=== PATIENT | female | born 1985 | race Caucasian/White ===

== ENCOUNTER 2016-12-18 11:55 | Emergency (ER) | payer BC ==
[2016-07-29 08:29] VITALS: BMI 44.0
[~2016-12-18 11:55] MED LIST: BUPROPION HCL100 M1 PO; HYDROCODON-ACE1 EAC7 PO; INDERAL10 MG PO; LEVAQUIN500 MG PO; ROBAXIN500 MG PO; ULTRAM50 MG PO; ZOLOFT100 MG PO
[2016-12-18 12:31] LABS: APPEARANCE CLEAR (CLEAR); BILIRUBIN NEGATIVE (NEGATIVE); COLOR YELLOW (YELLOW); GLUCOSE NEGATIVE (NEGATIVE); KETONE NEGATIVE (NEGATIVE); LEUKOCYTE ESTERASE NEGATIVE (NEGATIVE); NITRITE NEGATIVE (NEGATIVE); PROTEIN NEGATIVE (NEGATIVE); UROBILINOGEN NORMAL (NORMAL)
[2016-12-18 12:53] LABS: BASOPHILS 0.2 % (0.0-2.0); EOSINOPHILS 0.4 % (0-7); HEMOGLOBIN 11.8 g/dL (12-16); IMMATURE GRANULOCYTES 0.2 % (0-5); LYMPHOCYTES 25.9 % (15-50); MCH 27.9 pg (26.0-34.0); MCHC 32.8 g/dL (31.0-37.0); MCV 85.1 fL (80.0-100.0); MEAN PLATELET VOLUME 9.3 fL (7.4-10.4); MONOCYTES 7.7 % (2-11); NEUTROPHILS 65.6 % (40-80); PLATELET COUNT 293 10x3/uL (130-400); RBC 4.23 10x6/uL (4.00-5.40); RDW 14.5 % (11.5-14.5); WBC 12.8 10x3/uL (4.8-10.8)
== END 2016-12-18 16:13 | disposition home or self-care (01) ==
LOC: D.ER 11:55
PROVIDERS: Emergency Medicine
DX: O26.891 Other specified pregnancy related conditions, first trimester (principal); Z3A.01 Less than 8 weeks gestation of pregnancy; R10.9 Unspecified abdominal pain

== ENCOUNTER 2016-12-24 09:12 | Emergency (ER) | payer BC ==
[2016-07-29 08:29] VITALS: BMI 44.0
[2016-12-24 09:49] LABS: BASOPHILS 0.2 % (0.0-2.0); EOSINOPHILS 0.8 % (0-7); HEMATOCRIT 36.2 % (36.0-48.0); HEMOGLOBIN 11.9 g/dL (12-16); IMMATURE GRANULOCYTES 0.4 % (0-5); LYMPHOCYTES 29.8 % (15-50); MCH 28.2 pg (26.0-34.0); MCHC 32.9 g/dL (31.0-37.0); MCV 85.8 fL (80.0-100.0); MEAN PLATELET VOLUME 8.9 fL (7.4-10.4); MONOCYTES 7.6 % (2-11); NEUTROPHILS 61.2 % (40-80); PLATELET COUNT 270 10x3/uL (130-400); RBC 4.22 10x6/uL (4.00-5.40); RDW 14.2 % (11.5-14.5); WBC 12.2 10x3/uL (4.8-10.8)
[2016-12-24 09:58] LABS: HCG SERUM POSITIVE (NEGATIVE)
== END 2016-12-24 13:44 | disposition home or self-care (01) ==
LOC: D.ER 09:12
PROVIDERS: Family Medicine
DX: O20.0 Threatened abortion (principal); Z3A.01 Less than 8 weeks gestation of pregnancy

== ENCOUNTER 2016-12-25 02:04 | Emergency (ER) | payer BC ==
[2016-07-29 08:29] VITALS: BMI 44.0
[2016-12-25 02:25] LABS: BASOPHILS 0.2 % (0.0-2.0); EOSINOPHILS 0.6 % (0-7); HEMATOCRIT 35.2 % (36.0-48.0); HEMOGLOBIN 11.7 g/dL (12-16); IMMATURE GRANULOCYTES 0.4 % (0-5); LYMPHOCYTES 25.2 % (15-50); MCHC 33.2 g/dL (31.0-37.0); MCV 84.2 fL (80.0-100.0); MONOCYTES 5.8 % (2-11); NEUTROPHILS 67.8 % (40-80); PLATELET COUNT 289 10x3/uL (130-400); RBC 4.18 10x6/uL (4.00-5.40); WBC 16.2 10x3/uL (4.8-10.8)
[2016-12-25 02:34] LABS: HCG SERUM POSITIVE (NEGATIVE)
[2016-12-25 02:39] LABS: ALBUMIN 3.3 g/dL (3.4-5.0); ALKALINE PHOSPHATASE 86 U/L (46-116); ALT (SGPT) 18 U/L (10-68); BILIRUBIN - TOTAL 0.12 mg/dL (0.2-1.3); CALC OSMOLALITY 275 mosm/kg (275-300); CALCIUM 8.5 mg/dL (8.5-10.1); CARBON DIOXIDE 20.5 mmol/L (21.0-32.0); CHLORIDE - SERUM 105 mmol/L (98-107); CREATININE - SERUM 0.9 mg/dL (0.6-1.3); GLUCOSE 110 mg/dL (74-106); POTASSIUM - SERUM 3.3 mmol/L (3.5-5.1); PROTEIN - SERUM 7.3 g/dL (6.4-8.2); SODIUM 137 mmol/L (136-145); UREA NITROGEN 15 mg/dL (7-18); eGFR NON AFRICAN AMERICAN 77 mL/min (90-120)
[2016-12-25 02:46] LABS: HCG - QUANTITATIVE (MATERNAL) 831 mIU/mL
== END 2016-12-25 03:59 | disposition home or self-care (01) ==
LOC: D.ER 02:04
PROVIDERS: Emergency Medicine
DX: O03.9 Complete or unspecified spontaneous abortion without complication (principal)

== ENCOUNTER → 2017-01-19 11:10 | Outpatient (CLI) | payer BC ==
[2016-07-29 08:29] VITALS: BMI 44.0
[2017-01-19 11:37] LABS: BASOPHILS 0.2 % (0-2); EOSINOPHILS 0.8 % (0-7); HEMATOCRIT 34.2 % (36.0-48.0); HEMOGLOBIN 11.1 g/dL (12-16); IMMATURE GRANULOCYTES 0.2 % (0-5); LYMPHOCYTES 24.7 % (15-50); MCH 28.1 pg (26.0-34.0); MCHC 32.5 g/dL (31.0-37.0); MCV 86.6 fL (80.0-100.0); NEUTROPHILS 67.1 % (40-80); PLATELET COUNT 229 10x3/uL (130-400); RBC 3.95 10x6/uL (4.00-5.40)
[2017-01-19 11:45] LABS: INR 1.11 (0.85-1.17); PROTIME 14.2 SECONDS (11.6-15.0)
[2017-01-19 11:46] LABS: APTT 26.3 SECONDS (22.8-39.4)
[2017-01-19 11:55] LABS: HELICOBACTER PYLORI IGG NEGATIVE (NEGATIVE)
[2017-01-19 12:20] LABS: ALKALINE PHOSPHATASE 77 U/L (46-116); ALT (SGPT) 29 U/L (10-68); BILIRUBIN - INDIRECT 0.14 mg/dL (0.00-1.00); BILIRUBIN - TOTAL 0.17 mg/dL (0.2-1.3); CALC OSMOLALITY 278 mosm/kg (275-300); CALCIUM 8.5 mg/dL (8.5-10.1); CARBON DIOXIDE 25.8 mmol/L (21.0-32.0); CHLORIDE - SERUM 107 mmol/L (98-107); CHOL - HDL RATIO 4.6 ratio (2.3-4.1); CHOLESTEROL, TOTAL 176 mg/dL (0-200); CREATININE - SERUM 0.8 mg/dL (0.6-1.3); GLUCOSE 111 mg/dL (74-106); HDL CHOLESTEROL 38 mg/dL (32-96); LDL CHOLESTEROL 92 mg/dL (0-100); LDL-HDL RATIO 2.4 ratio (1.5-3.5); POTASSIUM - SERUM 4.2 mmol/L (3.5-5.1); PROTEIN - SERUM 6.9 g/dL (6.4-8.2); SODIUM 140 mmol/L (136-145); THYROID STIMULATING HORMONE 1.95 uIU/mL (0.36-3.74); TRIGLYCERIDE 232 mg/dL (30-200); UREA NITROGEN 9 mg/dL (7-18); eGFR NON AFRICAN AMERICAN 89 mL/min (90-120)
[2017-01-19 12:21] LABS: BILIRUBIN - DIRECT 0.03 mg/dL (0.00-0.30)
[2017-01-20 09:17] LABS: FOLATE (FOLIC ACID) - SERUM 15.8 ng/mL (>3.0)
[2017-01-20 10:18] LABS: HELICOBACTER PYLORI IGM AB 5.9 units (0.0-8.9)
[2017-01-20 11:19] LABS: VITAMIN D 25 HYDROXY 16.9 ng/mL (30.0-100.0)
== END | disposition home or self-care (01) ==
LOC: D.LAB 11:10
PROVIDERS: Surgery
DX: Z00.00 Encounter for general adult medical examination without abnormal findings (principal)

== ENCOUNTER → 2017-01-28 09:59 | Outpatient (CLI) | payer BC ==
[2016-07-29 08:29] VITALS: BMI 44.0
== END | disposition home or self-care (01) ==
LOC: D.RAD 09:59
DX: K21.9 Gastro-esophageal reflux disease without esophagitis (principal); Z68.41 Body mass index [BMI] 40.0-44.9, adult; E66.01 Morbid (severe) obesity due to excess calories

== ENCOUNTER → 2017-02-15 05:16 | Day surgery (SDC) | payer BC ==
[~2017-02-15] VITALS: Ht 162.6 cm; Wt 115.5 kg
[2017-02-15 05:55] VITALS: BP 109/63; Ht 162.6 cm; Wt 115.5 kg
[2017-02-15 06:01] LABS: HCG URINE NEGATIVE (NEGATIVE)
[2017-02-15 06:29] LABS: HEMATOCRIT 37.1 % (36.0-48.0); MCH 28.3 pg (26.0-34.0); MCHC 32.3 g/dL (31.0-37.0); MCV 87.5 fL (80.0-100.0); MEAN PLATELET VOLUME 9.7 fL (7.4-10.4); RBC 4.24 10x6/uL (4.00-5.40); RDW 13.5 % (11.5-14.5); WBC 9.5 10x3/uL (4.8-10.8)
--- NOTE | 2017-02-15 09:40 | NUR ---
0830-RECD TO ROOM FROM GI LAB. DR BOWLES IN TO TALK TO PATIENT/SPOUSE. 0900-FULL LIQUIDS SERVED.
--- NOTE | 2017-02-15 10:38 | NUR ---
0930-IV D/C, DISCHARGE INSTRUCTIONS REVIEWED. 1000-D/C VIA WHEELCHAIR.
--- NOTE | 2017-02-15 22:59 | OP ---
PATIENT NAME: FABIAN SILVA MEDICAL RECORD: [id number] :[birth year] LOCATION:D.OPS ADMISSION DATE: SURGEON: HANNY BOWLES MD DATE OF OPERATION: 02/15/2017 SURGEON: Hanny Bowles M.D. PREOPERATIVE DIAGNOSES: 1. Gastroesophageal reflux disease. 2. Morbid obesity. 3. Body mass index 40-45. POSTOPERATIVE DIAGNOSES: 1. Gastroesophageal reflux disease. 2. Morbid obesity. 3. Body mass index 40-45. PROCEDURES PERFORMED: Esophagogastroduodenoscopy with biopsy. ANESTHESIA: Total intravenous anesthesia. SPECIMENS: 1. Duodenal biopsy. 2. Antrum. 3. Gastric 4. GE junction. Case is contaminated. OPERATIVE COURSE: After consent was obtained, the patient was taken to the endoscopy suite. A timeout was taken to confirm the correct patient and procedure. A bite block was placed. Hurricaine [place] was administered. Total intravenous anesthesia was given. The patient was placed in left lateral decubitus position. The endoscope was passed through the biteblock under direct endoscopic vision and it was passed posterior of the epiglottis. It was passed through the esophagus under endoscopic vision. It was advanced into the stomach. The stomach was insufflated. The scope was then passed into the stomach. The pylorus was intubated. The duodenum was evaluated. There was no duodenitis noted. Multiple duodenal biopsies were taken. The scope was withdrawn to the pylorus. Antral biopsies were taken. There was some mild gastritis noted on the stomach on exam. Multiple gastric biopsies were taken. The scope was retroflexed. There was no hiatal hernia noted. The scope was then withdrawn through the GE junction. There was some mild reflux, linear ulcerations, and mild grade I esophagitis. There was no hiatal hernia noted. Multiple GE junction biopsies were taken. The scope was then reinserted into the stomach. The stomach was desufflated. The esophagus was examined upon withdrawal the scope. There were no esophageal abnormalities identified. The scope was withdrawn. At the end of the case, all needle and instrument counts were correct. No complications occurred. The patient tolerated the procedure well. At the end of the case, she was transferred to recovery room in satisfactory condition. TRANSINT:[id number] Voice Confirmation ID: [id number] DOCUMENT ID: [id number] OPERATIVE REPORT [id number] FABIAN SILVA HANNY BOWLES MD at 2259 CC: [id number] DICTATION DATE: 02/15/17 08 HONING MACHINE OPERATOR: 02/15/17 1127 [address] [place] [id number] [place] [id number]
== END | disposition home or self-care (01) ==
LOC: D.OPS 05:16
PROVIDERS: Anesthesiology; Surgery
DX: K29.50 Unspecified chronic gastritis without bleeding (principal); K21.0 Gastro-esophageal reflux disease with esophagitis; E66.01 Morbid (severe) obesity due to excess calories; Z68.41 Body mass index [BMI] 40.0-44.9, adult

== ENCOUNTER 2017-03-24 05:18 | Inpatient (IN) | payer BC ==
[2017-03-23 15:54] LABS: HEMATOCRIT 34.3 % (36.0-48.0); HEMOGLOBIN 11.3 g/dL (12-16); MCH 28.1 pg (26.0-34.0); MCHC 32.9 g/dL (31.0-37.0); MCV 85.3 fL (80.0-100.0); MEAN PLATELET VOLUME 9.5 fL (7.4-10.4); RBC 4.02 10x6/uL (4.00-5.40); RDW 13.3 % (11.5-14.5)
[~2017-03-24] VITALS: Ht 162.6 cm; Wt 113.6 kg
[2017-03-24] VITALS (9 sets, daily range): BP systolic 98–156; BP diastolic 49–92; Ht 162.6 cm; Wt 113.6 kg
[2017-03-24 07:21] LABS: HCG URINE NEGATIVE (NEGATIVE)
--- NOTE | 2017-03-24 10:43 | NUR ---
PATIENT RATES PAIN AT 6 UPON DC FROM PACU. 2 MG DILAUDID GIVEN.
--- NOTE | 2017-03-24 10:55 | NUR ---
RECIEVED PT FROM SURGERY AT THIS TIME. REPORT GIVEN BY ESCOBAR PRADO RN. PT ORIENTED TO ROOM. BED IN LOW POSITION AND CALL LIGHT WITHIN REACH. POST-OP STABILITY VITALS STARTED.
--- NOTE | 2017-03-24 15:08 | NUR ---
Patient Name: FABIAN SILVA Admission Status: Elective Accout number: [id number] Admission Date: 03-24-2017 : 1985 Admission Diagnosis: Attending: MAIK Current LOS: 1 Anticipated DC Date: 03-26-2017 Planned Disposition: Home Primary Insurance: [employer] OUT OF STATE Discharge Planning Comments: CM MET WITH PATIENT REGARDING D/C NEEDS AND PLANS. PATIENT STATED SHE LIVES WITH HER SPOUSE MEGHNA AND HE WILL DRIVE HER HOME AT DISCHARGE. PATIENT STATED SHE HAS ABOUT 5 STEPS TO ENTER HOME AND NO STEPS INSIDE. PATIENT STATED SHE IS INDEPENDENT WITH HER CARE AND HAS NO DME AT HOME. PATIENTS PCP IS DR. NO AND PHARMACY IS [facility] [address]. PATIENT DENIES NEEDS FOR HOME HEALTH AT THIS TIME. CM WILL CONTINUE TO FOLLOW PATIENT WITH D/C NEEDS AND PLANS. PCP DR[facility] [address]- [phone] CAREN (SPOUSE) [phone] [employer]: [facility] How many steps to enter\exit or inside your home? 5 W/RAILS 0 * PCP DR. NO 0 * [facility]acy [facility] [address] 0 * Preadmission Environment Home with Family 0 * ADLs Independent 0 * Equipment None 0 * List name and contact numbers for known caregivers / representatives who currently or will assist patient after discharge: CAREN [phone] * Community resources currently utilized None 0 * Additional services required to return to the preadmission environment? Yes 0 * Can the patient safely return to the preadmission environment? Yes 0 * Has this patient been hospitalized within the prior 30 days at any hospital? No 0 Grand Total: 0
--- NOTE | 2017-03-24 16:20 | NUR ---
AMBULATED WITH PT AROUND NURSING UNIT X1, PT TOLERATED WELL.
[2017-03-25] VITALS: BP 125/72
[2017-03-25 04:00] VITALS: BP 135/63
[2017-03-25 05:47] LABS: BASOPHILS 0.1 % (0-2); EOSINOPHILS 0.1 % (0-7); HEMATOCRIT 31.9 % (36.0-48.0); HEMOGLOBIN 10.5 g/dL (12-16); IMMATURE GRANULOCYTES 0.4 % (0-5); LYMPHOCYTES 15.3 % (15-50); MCH 27.9 pg (26.0-34.0); MCHC 32.9 g/dL (31.0-37.0); MCV 84.6 fL (80.0-100.0); MONOCYTES 6.7 % (2-11); NEUTROPHILS 77.4 % (40-80); PLATELET COUNT 296 10x3/uL (130-400); RBC 3.77 10x6/uL (4.00-5.40); RDW 13.3 % (11.5-14.5)
[2017-03-25 05:58] LABS: WBC 15.3 10x3/uL (4.8-10.8)
[2017-03-25 06:01] LABS: CALC OSMOLALITY 276 mosm/kg (275-300); CALCIUM 8.5 mg/dL (8.5-10.1); CARBON DIOXIDE 24.2 mmol/L (21.0-32.0); CHLORIDE - SERUM 103 mmol/L (98-107); CREATININE - SERUM 0.6 mg/dL (0.6-1.3); GLUCOSE 105 mg/dL (74-106); MAGNESIUM - SERUM 1.5 mg/dL (1.8-2.4); POTASSIUM - SERUM 3.9 mmol/L (3.5-5.1); SODIUM 139 mmol/L (136-145); UREA NITROGEN 9 mg/dL (7-18); eGFR NON AFRICAN AMERICAN > 90 mL/min (90-120)
--- NOTE | 2017-03-25 07:15 | NUR ---
PATIENT RECEIVED IN LOW GILES POSITION RESTING WITH EYES CLOSED. RESPIRATIONS EVEN AND UNLABORED. FAMILY AT BEDSIDE. SIDE RAILS UP X2. BED IN LOW POSITION. CALL LIGHT IN REACH.
[2017-03-25 08:15] VITALS: BP 121/65
--- NOTE | 2017-03-25 08:54 | NUR ---
PATIENT ALERT IN BED. C/O NAUSEA AND PAIN 05/06. ZOFRAN AND DEMEROL PER PRN ORDER. TALKED WITH PATIENT ABOUT WALKING IN THE HALLWAY ONCE NAUSEA UNDER CONTROL. STATES UNDERSTANDING. DENIES NEEDS. SIDE RAILS UP X2. BED IN LOW POSITION. CALL LIGHT IN REACH.
--- NOTE | 2017-03-25 11:50 | NUR ---
PATIENT UP SHOWERING WITH ASSIST FROM FAMILY. STATES NAUSEA IS A LITTLE BETTER THAN THIS MORNING. DENIES NEEDS.
[2017-03-25 12:31] VITALS: BP 123/69
--- NOTE | 2017-03-25 13:20 | NUR ---
PATIENT AMBULATED 250 FT AROUND NURSES UNIT WITHOUT ASSIST. WELL TOLERATED. SITTING UP IN CHAIR PRESENTLY. CALL LIGHT IN REACH.
--- NOTE | 2017-03-25 13:55 | NUR ---
NUTRITION MONITORING & EVAL CAHRT REVIEWED. SPOKE WITH PT BRIEFLY ABOUT DIET GUIDELINES, RESTRICTIONS. PT STATES SHE HAS ALL OUTPT MATERIAL AND POSES NO QUESTIONS. UP IN CHAIR BUT VERY DROWSY. RD FOLLOWING
[2017-03-25 16:36] VITALS: BP 132/80
--- NOTE | 2017-03-25 18:00 | NUR ---
ALERT IN BED RESTING QUIETLY. RESPIRATIONS EVEN AND UNLABORED. SCHEDULED MEDICATION ADMINISTERED WELL PRN TORADOL. DENIES NEEDS. BED IN LOW POSITION. CALL LIGHT IN REACH.
--- NOTE | 2017-03-25 19:29 | NUR ---
ASSESSMENT COMPLETED, NO ACUTE DISTRESS NOTED, IV INFUSING TO R FOREARM, FAMILY IN ROOM, SR'S UP X2, CL IN REACH, WILL MONITOR
--- NOTE | 2017-03-25 19:32 | NUR ---
INSTRUCTED PT TO AMBULATE, PT AGREED, AMBULATING IN [place] WITH FAMILY, NO DISTRESS NOTED
[2017-03-25 20:00] VITALS: BP 122/57
--- NOTE | 2017-03-25 20:48 | NUR ---
PRN DEMEROL GIVEN PER REQUEST FOR C/O PAIN 04/05, BETTY WELL, DENIES FURTHER NEEDS, CL IN REACH, FAMILY IN ROOM
--- NOTE | 2017-03-25 23:10 | NUR ---
RESTING WITH EYES CLOSED, RESP WITH EASE, NO DISTRESS NOTED, FALL PRECAUTIONS IN PLACE, CL IN REACH
[2017-03-26] VITALS: BP 107/63
[2017-03-26 04:00] VITALS: BP 107/68
[2017-03-26 05:13] LABS: BASOPHILS 0.1 % (0-2); EOSINOPHILS 0.3 % (0-7); HEMATOCRIT 28.7 % (36.0-48.0); HEMOGLOBIN 9.4 g/dL (12-16); IMMATURE GRANULOCYTES 0.2 % (0-5); LYMPHOCYTES 26.4 % (15-50); MCH 28.1 pg (26.0-34.0); MCHC 32.8 g/dL (31.0-37.0); MCV 85.7 fL (80.0-100.0); MEAN PLATELET VOLUME 9.4 fL (7.4-10.4); MONOCYTES 9.4 % (2-11); NEUTROPHILS 63.6 % (40-80); RBC 3.35 10x6/uL (4.00-5.40); RDW 13.7 % (11.5-14.5)
[2017-03-26 05:25] LABS: PLATELET COUNT 235 10x3/uL (130-400); WBC 9.1 10x3/uL (4.8-10.8)
[2017-03-26 05:26] LABS: CALC OSMOLALITY 278 mosm/kg (275-300); CALCIUM 8.3 mg/dL (8.5-10.1); CARBON DIOXIDE 27.9 mmol/L (21.0-32.0); CHLORIDE - SERUM 108 mmol/L (98-107); CREATININE - SERUM 0.8 mg/dL (0.6-1.3); GLUCOSE 93 mg/dL (74-106); MAGNESIUM - SERUM 1.8 mg/dL (1.8-2.4); POTASSIUM - SERUM 3.8 mmol/L (3.5-5.1); SODIUM 141 mmol/L (136-145); UREA NITROGEN 8 mg/dL (7-18); eGFR NON AFRICAN AMERICAN 89 mL/min (90-120)
--- NOTE | 2017-03-26 07:00 | NUR ---
PT REC'D FROM [facility]. UP AMBULATING THROUGH HALLS WITHOUT ANY ASSISTANCE. AAOX4. NO COMPLAINTS OF PAIN. APPLE JUICE PROVIDED. BED LOW, CALL LIGHT IN REACH, DENIES NEEDS. CPOC.
--- NOTE | 2017-03-26 07:15 | NUR ---
PATIENT IS SITTING UP IN THE CHAIR, NO SIGNS OF DISTRESS NOTED. PATIENT IS RECIEVING A UPDRAFT AT THIS TIME. PATIENT DENIES NEEDS. CALL LIGHT IN REACH.
--- NOTE | 2017-03-26 08:05 | NUR ---
MORNING MEDS PASSED AT THIS TIME. PRN TYLENOL ADMINISTERED PER PT COMPLAINTS OF HOU. STATED SHE DID NOT WANT ANYTHING "HEAVY." I STATED SHE HAD TYLENOL ORDERED AND SHE SAID THAT WOULD BE FINE. DRESSINGS TO ABD CDI. WILL REASSESS PAIN. BED LOW, CALL LIGHT IN REACH, DENIES NEEDS. CPOC.
[2017-03-26 08:42] VITALS: BP 124/71
--- NOTE | 2017-03-26 10:47 | NUR ---
PRN DEMEROL ADMINISTERED PER PT COMPLAINTS OF 7/10 ABD PAIN. WILL REASSESS. ONE TIME DOSE OF DIFLUCAN ADMINISTERED PER ORDERS. SPOKE WITH PT ABOUT POSSIBLE DC. STATES SHE IS FINE WITH GOING HOME SHE IS JUST WAITING ON HER TO GET HERE. BED LOW, CALL LIGHT IN REACH, DENIES NEEDS. CPOC.
[2017-03-26] MEDS ORDERED: ZOFRAN ODT4 MG/UDTAB PO (11:33)
[2017-03-26] MEDS ORDERED: MEPERIDINE HCL50 MG PO (11:33)
[2017-03-26 12:52] VITALS: BP 131/77
--- NOTE | 2017-03-26 13:49 | NUR ---
DISCHARGE INSTRUCTIONS AND FOLLOW UP APPOINTMENTS DISCUSSED. NO QUESTIONS OR CONCERNS VOICED AT THIS TIME. PIV TO R FA DC'D WITH CATHETER INTACT. ESCORTED OUT VIA WC BY VOLUNTEER.
== END 2017-03-26 13:50 | disposition home or self-care (01) | DRG 982 ==
LOC: D.SDCHOLD 05:18 → D.MS 05:18 → D.SDCHOLD 08:00 → D.MS 10:47
PROVIDERS: Anesthesiology; ADMIT Surgery
PROC: 0DB64Z3 Excision of Stomach, Percutaneous Endoscopic Approach, Vertical (ICD-10-PCS; principal; 2017-03-24 08:00)
DX: E66.2 Morbid (severe) obesity with alveolar hypoventilation (principal); Z68.41 Body mass index [BMI] 40.0-44.9, adult; K21.9 Gastro-esophageal reflux disease without esophagitis; J42 Unspecified chronic bronchitis; F17.200 Nicotine dependence, unspecified, uncomplicated

== ENCOUNTER → 2017-06-18 10:00 | Outpatient (CLI) | payer BC ==
[2017-03-24 17:09] VITALS: BMI 43.0
[~2017-06-18 10:00] MED LIST changes: +MEPERIDINE HCL50 MG PO; +ZOFRAN ODT4 MG/UDTAB PO
== END | disposition home or self-care (01) ==
LOC: D.LAB 10:00
DX: Z00.00 Encounter for general adult medical examination without abnormal findings (principal); K21.9 Gastro-esophageal reflux disease without esophagitis

== ENCOUNTER → 2017-09-17 10:33 | Outpatient (CLI) | payer BC ==
[2017-03-24 17:09] VITALS: BMI 43.0
[2017-09-17 12:06] LABS: CREATININE - SERUM 0.6 mg/dL (0.6-1.3); GLUCOSE 81 mg/dL (74-106)
[2017-09-17 12:20] LABS: BASOPHILS 0.3 % (0-2); EOSINOPHILS 0.5 % (0-7); HEMATOCRIT 33.6 % (36.0-48.0); HEMOGLOBIN 11.2 g/dL (12-16); IMMATURE GRANULOCYTES 0.3 % (0-5); LYMPHOCYTES 24.5 % (15-50); MCH 29.2 pg (26.0-34.0); MCHC 33.3 g/dL (31.0-37.0); MCV 87.5 fL (80.0-100.0); MEAN PLATELET VOLUME 10.4 fL (7.4-10.4); MONOCYTES 6.8 % (2-11); NEUTROPHILS 67.6 % (40-80); PLATELET COUNT 245 10x3/uL (130-400); RBC 3.84 10x6/uL (4.00-5.40); RDW 14.2 % (11.5-14.5); WBC 7.9 10x3/uL (4.8-10.8)
[2017-09-17 16:30] LABS: ALBUMIN 3.4 g/dL (3.4-5.0); ALKALINE PHOSPHATASE 69 U/L (46-116); ALT (SGPT) 15 U/L (10-68); BILIRUBIN - TOTAL 0.26 mg/dL (0.2-1.3); CALC OSMOLALITY 272 mosm/kg (275-300); CALCIUM 8.9 mg/dL (8.5-10.1); CARBON DIOXIDE 24.6 mmol/L (21.0-32.0); CHLORIDE - SERUM 104 mmol/L (98-107); CHOL - HDL RATIO 2.9 ratio (2.3-4.1); CHOLESTEROL, TOTAL 109 mg/dL (0-200); HDL CHOLESTEROL 38 mg/dL (32-96); LDL CHOLESTEROL 58 mg/dL (0-100); LDL-HDL RATIO 1.5 ratio (1.5-3.5); PROTEIN - SERUM 6.9 g/dL (6.4-8.2); SODIUM 138 mmol/L (136-145); TRIGLYCERIDE 69 mg/dL (30-200); UREA NITROGEN 7 mg/dL (7-18)
== END | disposition home or self-care (01) ==
LOC: D.LABREF 10:33
PROVIDERS: Surgery
DX: Z00.00 Encounter for general adult medical examination without abnormal findings (principal); K21.9 Gastro-esophageal reflux disease without esophagitis

== ENCOUNTER 2017-09-30 20:19 | Emergency (ER) | payer BC ==
[2017-03-24 17:09] VITALS: BMI 43.0
[2017-09-30 20:44] LABS: BASOPHILS 0.2 % (0-2); EOSINOPHILS 0.5 % (0-7); HEMATOCRIT 32.2 % (36.0-48.0); HEMOGLOBIN 11.1 g/dL (12-16); IMMATURE GRANULOCYTES 0.3 % (0-5); LYMPHOCYTES 26.7 % (15-50); MCH 29.8 pg (26.0-34.0); MCHC 34.5 g/dL (31.0-37.0); MCV 86.3 fL (80.0-100.0); MEAN PLATELET VOLUME 9.5 fL (7.4-10.4); MONOCYTES 5.4 % (2-11); NEUTROPHILS 66.9 % (40-80); PLATELET COUNT 225 10x3/uL (130-400); RBC 3.73 10x6/uL (4.00-5.40); RDW 13.8 % (11.5-14.5); WBC 11.6 10x3/uL (4.8-10.8)
[2017-09-30 21:01] LABS: ALBUMIN 3.2 g/dL (3.4-5.0); ALKALINE PHOSPHATASE 65 U/L (46-116); ALT (SGPT) 11 U/L (10-68); BILIRUBIN - TOTAL 0.17 mg/dL (0.2-1.3); CALC OSMOLALITY 275 mosm/kg (275-300); CALCIUM 8.8 mg/dL (8.5-10.1); CARBON DIOXIDE 25.3 mmol/L (21.0-32.0); CHLORIDE - SERUM 104 mmol/L (98-107); CREATININE - SERUM 0.6 mg/dL (0.6-1.3); GLUCOSE 111 mg/dL (74-106); POTASSIUM - SERUM 3.8 mmol/L (3.5-5.1); PROTEIN - SERUM 6.7 g/dL (6.4-8.2); SODIUM 138 mmol/L (136-145); UREA NITROGEN 10 mg/dL (7-18); eGFR NON AFRICAN AMERICAN > 90 mL/min (90-120)
[2017-09-30 21:22] LABS: HCG - QUANTITATIVE (MATERNAL) 56245 mIU/mL
[2017-09-30 21:42] LABS: APPEARANCE CLEAR (CLEAR); BILIRUBIN NEGATIVE (NEGATIVE); COLOR YELLOW (YELLOW); GLUCOSE NEGATIVE (NEGATIVE); KETONE NEGATIVE (NEGATIVE); NITRITE NEGATIVE (NEGATIVE); PROTEIN NEGATIVE (NEGATIVE); SPECIFIC GRAVITY 1.025 (1.005-1.020); UROBILINOGEN NORMAL (NORMAL)
== END 2017-09-30 22:26 | disposition home or self-care (01) ==
LOC: D.ER 20:19
PROVIDERS: Family Medicine
DX: O21.9 Vomiting of pregnancy, unspecified (principal); Z3A.08 8 weeks gestation of pregnancy

== ENCOUNTER → 2017-12-10 20:26 | Outpatient (CLI) | payer BC ==
[2017-03-24 17:09] VITALS: BMI 43.0
[~2017-12-10 20:26] MED LIST changes: +FLINTSTONE1 TAB.CHEW PO; +PRENATAL COMPLE1 TAB PO; +PROTONIX40 MG PO; +VITAMIN B-121000 MCG PO; +ZOLOFT50 MG PO
[2017-12-10 20:44] LABS: BASOPHILS 0.2 % (0-2); EOSINOPHILS 0.2 % (0-7); HEMOGLOBIN 10.5 g/dL (12-16); IMMATURE GRANULOCYTES 0.2 % (0-5); LYMPHOCYTES 21.4 % (15-50); MCH 29.9 pg (26.0-34.0); MCHC 32.8 g/dL (31.0-37.0); MCV 91.2 fL (80.0-100.0); MONOCYTES 5.3 % (2-11); NEUTROPHILS 72.7 % (40-80); PLATELET COUNT 247 10x3/uL (130-400); RBC 3.51 10x6/uL (4.00-5.40); RDW 14.3 % (11.5-14.5); WBC 9.2 10x3/uL (4.8-10.8)
[2017-12-10 20:53] LABS: CREATININE - SERUM 0.5 mg/dL (0.6-1.3)
== END | disposition home or self-care (01) ==
LOC: D.LAB 11:00
PROVIDERS: Surgery
DX: Z01.82 Encounter for allergy testing (principal); Z00.00 Encounter for general adult medical examination without abnormal findings; K21.9 Gastro-esophageal reflux disease without esophagitis

== ENCOUNTER → 2018-02-04 19:06 | Outpatient (CLI) | payer BC ==
[2017-03-24 17:09] VITALS: BMI 43.0
[2018-02-04 20:44] LABS: APPEARANCE CLEAR (CLEAR); BILIRUBIN NEGATIVE (NEGATIVE); COLOR YELLOW (YELLOW); GLUCOSE NEGATIVE (NEGATIVE); KETONE NEGATIVE (NEGATIVE); NITRITE NEGATIVE (NEGATIVE); PROTEIN NEGATIVE (NEGATIVE); UROBILINOGEN NORMAL (NORMAL)
== END | disposition home or self-care (01) ==
LOC: D.LDO 19:06
PROVIDERS: Obstetrics & Gynecology
DX: O36.8120 Decreased fetal movements, second trimester, not applicable or unspecified (principal); Z3A.27 27 weeks gestation of pregnancy

== ENCOUNTER → 2018-04-14 06:14 | Outpatient (CLI) | payer BC ==
[2017-03-24 17:09] VITALS: BMI 43.0
[~2018-04-14 06:14] MED LIST changes: +VALTREX500 MG PO
[2018-04-14 07:23] LABS: APPEARANCE CLEAR (CLEAR); BILIRUBIN NEGATIVE (NEGATIVE); COLOR YELLOW (YELLOW); GLUCOSE NEGATIVE (NEGATIVE); KETONE NEGATIVE (NEGATIVE); NITRITE NEGATIVE (NEGATIVE); PROTEIN NEGATIVE (NEGATIVE); SPECIFIC GRAVITY 1.015 (1.005-1.020); UROBILINOGEN NORMAL (NORMAL)
[2018-04-14 07:30] LABS: UDS - AMPHET NEGATIVE QUAL (NEGATIVE); UDS - BARB NEGATIVE QUAL (NEGATIVE); UDS - BENZO NEGATIVE QUAL (NEGATIVE); UDS - COCAINE NEGATIVE QUAL (NEGATIVE); UDS - OPIATE NEGATIVE QUAL (NEGATIVE); UDS - PCP NEGATIVE QUAL (NEGATIVE); UDS - THC NEGATIVE QUAL (NEGATIVE)
[2018-04-14 08:16] LABS: BASOPHILS 0.4 % (0-2); EOSINOPHILS 0.2 % (0-7); HEMATOCRIT 30.2 % (36.0-48.0); HEMOGLOBIN 9.9 g/dL (12-16); IMMATURE GRANULOCYTES 0.2 % (0-5); LYMPHOCYTES 27.9 % (15-50); MCH 27.9 pg (26.0-34.0); MCHC 32.8 g/dL (31.0-37.0); MCV 85.1 fL (80.0-100.0); MEAN PLATELET VOLUME 11.2 fL (7.4-10.4); MONOCYTES 6.3 % (2-11); PLATELET COUNT 205 10x3/uL (130-400); RBC 3.55 10x6/uL (4.00-5.40); RDW 13.3 % (11.5-14.5); WBC 8.2 10x3/uL (4.8-10.8)
== END | disposition home or self-care (01) ==
LOC: D.LDO 06:14
PROVIDERS: Obstetrics & Gynecology
DX: O26.893 Other specified pregnancy related conditions, third trimester (principal); Z3A.36 36 weeks gestation of pregnancy